=== PATIENT | female | born 2000 | race Caucasian/White ===

== ENCOUNTER → 2020-08-28 | Outpatient (CLI) | payer OTHER ==
[~2020-08-28] MED LIST: 'CLONIDINE0.1 MG PO; MEDROL DOSEPAK4 MG PO; ZITHROMAX250 MG PO
[2020-08-28 13:15] LABS: BASO % 0.2 % (0.0-1.0); EOS # 0.2 10*3/uL (0.0-0.4); EOS % 3.1 % (1.0-4.0); HEMATOCRIT 45.5 % (37.0-47.0); LYMPH # 2.1 10*3/uL (1.3-4.4); MEAN CORPUSCULAR HGB 28.8 pg (27.0-31.0); MEAN CORPUSCULAR HGB CONC 33.8 g/dl (33.0-37.0); MEAN PLATELET VOLUME 9.8 fl (9.6-12.3); MONO # 0.3 10*3/uL (0.1-1.0); MONO % 5.2 % (3.0-9.0); NEUT # 2.3 10*3/uL (2.3-7.9); NEUT % 48.3 % (47.0-73.0); PLATELET COUNT AUTOMATED 360 10*3/uL (130-400); RED BLOOD COUNT 5.35 10*6/uL (4.10-5.10); RED CELL DISTRI WIDTH 11.5 % (0-14.5); WHITE BLOOD COUNT 4.8 10*3/uL (4.8-10.8)
[2020-08-28 13:30] LABS: ALKALINE PHOSPHATASE 91 U/L (45-117); BUN 12 mg/dl (7-24); CHLORIDE 107 mmol/L (98-107); CREATININE 0.76 mg/dL (0.55-1.02); POTASSIUM 3.8 mmol/L (3.5-5.1); SGOT/AST 21 IU/L (3-35); SGPT/ALT 37 U/L (12-78); SODIUM 141 mmol/L (136-145); TOTAL PROTEIN 8.2 gm/dL (6.4-8.2)
[2020-09-01 17:11] LABS: ALTERNARIA ALTERNATA, IGE <0.10 kU/L (Class 0); AMERICAN ELM, IGE 0.34 kU/L (Class I); ASPERGILLUS FUMIGATU, IGE <0.10 kU/L (Class 0); BERMUDA GRASS, IGE 0.31 kU/L (Class 0/I); BIRCH, COMMON SILVER IGE 0.22 kU/L (Class 0/I); CLADOSPORIUM HERBARU, IGE <0.10 kU/L (Class 0); CORN, IGE 0.28 kU/L (Class 0/I); D FARINAE MITE 0.15 kU/L (Class 0/I); D PTERONYSSINUS <0.10 kU/L (Class 0); DOG DANDER, IGE <0.10 kU/L (Class 0); IMMUNOGLOBULIN IgE 37 IU/mL (6-495); MAPLE LEAF SYCAMORE, IGE 0.35 kU/L (Class I); MILK (COW), IGE <0.10 kU/L (Class 0); MOUSE URINE IGE <0.10 kU/L (Class 0); PEANUT, IGE 0.36 kU/L (Class I); PENICILLIUM CHRYSOGENUM, IGE <0.10 kU/L (Class 0); ROUGH PIGWEED, IGE 0.22 kU/L (Class 0/I); SHORT RAGWEED, IGE 0.33 kU/L (Class I); SOYBEAN, IGE 0.24 kU/L (Class 0/I); TIMOTHY, IGE 0.31 kU/L (Class 0/I); WALNUT TREE, IGE 0.37 kU/L (Class I); WHEAT, IGE 0.33 kU/L (Class I); WHITE ASH, IGE 0.37 kU/L (Class I)
== END | disposition home or self-care (01) ==
LOC: LAB 12:35
PROVIDERS: ATTEND Pediatrics
DX: T78.40XA Allergy, unspecified, initial encounter (principal); N39.0 Urinary tract infection, site not specified; E16.2 Hypoglycemia, unspecified; R35.0 Frequency of micturition; Z13.1 Encounter for screening for diabetes mellitus; X58.XXXA Exposure to other specified factors, initial encounter

== ENCOUNTER → 2020-09-30 | Outpatient (CLI) | payer OTHER | END | disposition home or self-care (01) | LOC: COVID19 12:23 | PROVIDERS: ATTEND Pediatrics | DX: Z20.828 Contact with and (suspected) exposure to other viral communicable diseases (principal) ==

== ENCOUNTER 2020-10-29 16:59 | Emergency (ER) | payer OTHER ==
[2020-10-29 17:26] VITALS: BP 132/76
[2020-10-29 18:01] LABS: BASO % 0.4 % (0.0-1.0); EOS # 0.2 10*3/uL (0.0-0.4); EOS % 2.4 % (1.0-4.0); HEMATOCRIT 44.2 % (37.0-47.0); LYMPH # 2.6 10*3/uL (1.3-4.4); LYMPH % 30.5 % (27.0-41.0); MEAN CORPUSCULAR HGB 29.1 pg (27.0-31.0); MEAN CORPUSCULAR HGB CONC 34.6 g/dl (33.0-37.0); MEAN PLATELET VOLUME 9.7 fl (9.6-12.3); MONO # 0.5 10*3/uL (0.1-1.0); MONO % 6.2 % (3.0-9.0); NEUT # 5.1 10*3/uL (2.3-7.9); NEUT % 60.5 % (47.0-73.0); PLATELET COUNT AUTOMATED 313 10*3/uL (130-400); RED BLOOD COUNT 5.26 10*6/uL (4.10-5.10); RED CELL DISTRI WIDTH 11.7 % (0-14.5); WHITE BLOOD COUNT 8.5 10*3/uL (4.8-10.8)
[2020-10-29 18:12] LABS: BILIRUBIN Negative (Negative); BLOOD Negative (Negative); CLARITY Cloudy (Clear); COLOR Yellow (Yellow); GLUCOSE Negative (Negative); KETONE Trace (Negative); LEUKO ESTERASE 1+ (Negative); NITRITE Negative (Negative); PH 5.5 (4.5-8.0); SPECIFIC GRAVITY >= 1.030 (1.001-1.030)
[2020-10-29 18:16] LABS: ALBUMIN 3.7 gm/dl (3.1-4.5); ALKALINE PHOSPHATASE 86 U/L (45-117); BUN 10 mg/dl (7-24); CHLORIDE 105 mmol/L (98-107); POTASSIUM 3.7 mmol/L (3.5-5.1); SGOT/AST 17 IU/L (3-35); SGPT/ALT 31 U/L (12-78); SODIUM 137 mmol/L (136-145); TOTAL PROTEIN 7.3 gm/dL (6.4-8.2)
[2020-10-29 18:19] LABS: TROPONIN I < 0.015 ng/ml (<0.045)
[2020-10-29 18:27] LABS: BACTERIA 1+; EPITHELIAL CELLS 21-30
== END 2020-10-29 20:32 | disposition home or self-care (01) ==
LOC: ED 16:59
PROVIDERS: Nurse Practitioner Family
DX: R07.9 Chest pain, unspecified (principal)

== ENCOUNTER 2022-08-28 22:46 | Emergency (ER) | payer OTHER ==
[~2022-08-28] VITALS: Ht 160 cm; Wt 79.4 kg
[2022-08-28 22:54] VITALS: BP 130/90
[2022-08-29 00:31] LABS: BASO # 0.1 10*3/uL (0.0-0.1); BASO % 0.6 % (0.0-1.0); EOS # 0.2 10*3/uL (0.0-0.4); EOS % 2.3 % (1.0-4.0); HEMATOCRIT 42.5 % (37.0-47.0); LYMPH # 3.6 10*3/uL (1.3-4.4); LYMPH % 46.1 % (27.0-41.0); MEAN CELL VOLUME 85.7 fl (81.0-99.0); MEAN CORPUSCULAR HGB CONC 36.2 g/dl (33.0-37.0); MEAN PLATELET VOLUME 10.1 fl (9.6-12.3); MONO # 0.5 10*3/uL (0.1-1.0); MONO % 6.5 % (3.0-9.0); NEUT # 3.5 10*3/uL (2.3-7.9); NEUT % 44.2 % (47.0-73.0); PLATELET COUNT AUTOMATED 293 10*3/uL (130-400); RED BLOOD COUNT 4.96 10*6/uL (4.10-5.10); RED CELL DISTRI WIDTH 11.6 % (0-14.5); WHITE BLOOD COUNT 7.9 10*3/uL (4.8-10.8)
[2022-08-29 01:15] LABS: ALKALINE PHOSPHATASE 80 U/L (45-117); BUN 10 mg/dl (7-24); CHLORIDE 106 mmol/L (98-107); CREATININE 0.75 mg/dL (0.55-1.02); SGOT/AST 24 IU/L (3-35); SGPT/ALT 32 U/L (12-78); SODIUM 138 mmol/L (136-145); TOTAL PROTEIN 7.4 gm/dL (6.4-8.2)
== END 2022-08-29 01:55 | disposition home or self-care (01) ==
LOC: ED 22:46
PROVIDERS: Emergency Medicine
DX: R07.9 Chest pain, unspecified (principal); R06.02 Shortness of breath

== ENCOUNTER 2022-12-31 17:46 | Emergency (ER) | payer OTHER ==
[~2022-12-31] VITALS: Ht 165.1 cm; Wt 77.1 kg
[2022-12-31 18:13] VITALS: BP 151/90
[2022-12-31] MEDS ORDERED: AMOX-CLAV 875-1 EACH PO (18:18)
== END 2022-12-31 18:57 | disposition home or self-care (01) ==
LOC: ED 17:46
DX: K02.9 Dental caries, unspecified (principal); K04.7 Periapical abscess without sinus; Z88.8 Allergy status to other drugs, medicaments and biological substances

== ENCOUNTER 2023-08-01 13:49 | Emergency (ER) | payer OTHER ==
[~2023-08-01] VITALS: Ht 160 cm; Wt 79.4 kg
[~2023-08-01 13:49] MED LIST changes: +AMOX-CLAV 875-1 EACH PO
[2023-08-01 14:04] VITALS: BP 149/108
[2023-08-01 14:32] LABS: BILIRUBIN Negative (Negative); BLOOD Negative (Negative); CLARITY Clear (Clear); COLOR Yellow (Yellow); GLUCOSE Negative (Negative); KETONE Negative (Negative); LEUKO ESTERASE Negative (Negative); NITRITE Negative (Negative); PH 7.5 (4.5-8.0)
[2023-08-01 14:52] LABS: EPITHELIAL CELLS 21-30; RBC 0-2 rbc/hpf (0-2); WBC 0-2 wbc/hpf (0-5)
[2023-08-01 14:53] LABS: BACTERIA TRACE
== END 2023-08-01 15:03 | disposition home or self-care (01) ==
LOC: ED 13:49
PROVIDERS: Nurse Practitioner Family
DX: Z32.02 Encounter for pregnancy test, result negative (principal); Z88.8 Allergy status to other drugs, medicaments and biological substances

== ENCOUNTER 2024-04-26 18:28 | Emergency (ER) | payer OTHER ==
[~2024-04-26] VITALS: Ht 167.6 cm; Wt 79.4 kg
[2024-04-26 18:35] VITALS: BP 133/94
[2024-04-26] MEDS ORDERED: Amoxicillin/Clavulanate Pota 875 MG TAB PO ONE (18:50)
[2024-04-26] MEDS ORDERED: AMOX-CLAV 875-1 EACH PO (18:51)
== END 2024-04-26 18:59 | disposition home or self-care (01) ==
LOC: ED 18:28
DX: J03.90 Acute tonsillitis, unspecified (principal)